=== PATIENT | female | born 1985 | race African-American/Black ===

== ENCOUNTER 2017-04-24 20:38 | Emergency (ER) | payer OTHER ==
--- NOTE | 2017-04-24 20:54 | PDOC ---
History of Present Illness - General History Source: Patient Exam Limitations: No Limitations - History of Present Illness Initial Comments: 04/24/17 21:12 Patient is a 32 year old female with no significant past medical history who presents to the ED with epigastric pain for 1 hour. Patient states that the abdominal pain is intermittent, localized to the epigastrium and radiating across the abdomen. She reports nausea and denies any vomiting or diarrhea. She denies any hematochezia. LMP last month. PSH: tubal ligation, cholecystectomy (2 years ago) SH: non smoker, denies alcohol or drug use. Allergies: NKA <Charlotte Fowler - Last Filed: 04/24/17 21:12> <Jj Arredondo - Last Filed: 04/25/17 01:25> - General Chief Complaint: Pain, Acute Stated Complaint: ABDOMINAL PAIN Time Seen by Provider: 04/24/17 20:53 Past History <Charlotte Fowler - Last Filed: 04/24/17 21:12> <Jj Arredondo - Last Filed: 04/25/17 01:25> - Past Medical History Allergies/Adverse Reactions: Allergies Allergy/AdvReac Type Severity Reaction Status Date / Time No Known Allergies Allergy Verified 04/24/17 20:54 Home Medications: Ambulatory Orders NK [No Known Home Medication] 04/24/17 Review of Systems - Review of Systems Able to Perform ROS?: Yes Comments:: 04/24/17 21:12 CONSTITUTIONAL: No fever, no chills, no fatigue EYES: No visual changes ENT: No ear pain, no sore throat CARDIOVASCULAR: No chest pain, no palpitations RESPIRATORY: No cough, no SOB GI:(+)abdominal pain, nausea. No vomiting, no constipation, no diarrhea GENITOURINARY: No dysuria, no frequency, no hematuria MUSCULOSKELETAL: No back pain, no joint pain, no myalgias SKIN: No rash NEURO: No headache <Charlotte Fowler - Last Filed: 04/24/17 21:12> *Physical Exam - Vital Signs Last Vital Signs Temp Pulse Resp BP Pulse Ox 97.9 F 68 16 130/56 97 04/24/17 20:54 04/24/17 20:54 04/24/17 20:54 04/24/17 20:54 04/24/17 20:54 - Physical Exam Comments: 04/24/17 21:12 CONSTITUTIONAL: Well-appearing; well-nourished; in no apparent distress HEAD: Normocephalic; atraumatic EYES: PERRL; EOM intact ENMT: External appears normal; normal oropharynx NECK: Supple; non-tender; no cervical lymphadenopathy CARD: Normal S1, S2; no murmurs, rubs, or gallops RESP: Normal chest excursion with respiration; breath sounds clear and equal bilaterally; no wheezes, rhonchi, or rales ABD: (+)RUQ tenderness and epigastric tenderness upon palpation. Soft, non- distended; no palpable organomegaly, no palpable hernias EXT: Normal ROM in all four extremities; non-tender to palpation; distal pulses intact SKIN: Warm, dry, no rash NEURO: No focal neurological deficiencies. <Charlotte Fowler - Last Filed: 04/24/17 21:12> ED Treatment Course - LABORATORY CBC & Chemistry Diagram: 04/24/17 21:19 04/24/17 21:19 <Jj Arredondo - Last Filed: 04/25/17 01:25> Medical Decision Making - Medical Decision Making 04/25/17 01:24 Patient is obese 32-year-old female who presents with severe epigastric pain. In the ER, patient is noted to be writhing in pain requiring parenteral narcotics for pain control. Serial abdominal exams reveal epigastric and right upper quadrant tenderness only. There is no guarding rebound. CBC/CMP/lipase within normal limit. Chest x-ray reveals no evidence of free air under diaphragm. Limited right upper quadrant ultrasound reveals no evidence of intraocular x-ray hepatic bili dilatated. Will obtain CT of abdomen and pelvis to rule out possible colitis. Will endorse Dr. rosales for final disposition. <Jj Arredondo - Last Filed: 04/25/17 01:25> *DC/Admit/Observation/Transfer - Attestations Scribe Attestion: 04/24/17 21:13 Documentation prepared by MAURA Contreras, acting as manager medical affairs for Jj Arredondo MD. <Charlotte Fowler - Last Filed: 04/24/17 21:12> - Attestations Physician Attestion: 04/25/17 01:24 The documentation was prepared by the scribe under my direct supervision. I have reviewed the documentation which correctly represents the findings, medical decision-making and critical action taken by me. <Jj Arredondo - Last Filed: 04/25/17 01:25> - Referrals Referrals: Lea Gao MD [Primary Care Provider] -
[2017-04-24] MEDS ORDERED: FAMOTIDINE 20 MG/50 ML IVPB 50 ML IVPB ONE ×2 (21:03→21:11)
[2017-04-24] MEDS ORDERED: ONDANSETRON 4 MG/2 ML VIAL IVPB ONE (21:03)
[2017-04-24] MEDS ORDERED: SODIUM CHLORIDE 1,000 ML IV STA (21:04)
[2017-04-24] MEDS ORDERED: morphine CARPU-JECT 4 MG/1 ML DISP.SYRIN IVPUSH ONE (21:04)
[2017-04-24 21:08] VITALS: BMI 40.8
[2017-04-24] MEDS ORDERED: morphine CARPU-JECT 4 MG/1 ML DISP.SYRIN ONE (21:11)
[2017-04-24] MEDS ORDERED: ONDANSETRON 4 MG/2 ML VIAL ONE (21:11)
[2017-04-24 21:29] LABS: EOSINOPHIL 1.9 % (0-4.5); MCHC 31.9 g/dl (32.0-36.0); MEAN CELL VOLUME 81.4 fl (80-96); MEAN PLT VOLUME 8.5 fl (7.5-11.1); NEUTROPHILS 64.8 % (42.8-82.8); PLATELET COUNT 250 K/MM3 (134-434); RDW 15.1 % (11.6-15.6); WHITE BLOOD COUNT 8.7 K/mm3 (4.0-10.0)
[2017-04-24 22:11] LABS: ALBUMIN 3.6 g/dl (3.4-5.0); BILIRUBIN,TOTAL 0.3 mg/dL (0.2-1.0); CALCIUM 9.3 mg/dL (8.5-10.1); COCKROFT - GAULT 149.838; CREATININE 1.1 mg/dL (0.55-1.02); TOT PROT 8.1 g/dl (6.4-8.2)
[2017-04-24 23:26] LABS: URINE APPEARANCE CLOUDY; URINE BILIRUBIN NEGATIVE (NEGATIVE); URINE BLOOD NEGATIVE (NEGATIVE); URINE COLOR LTYELLOW; URINE GLUCOSE (UA) NEGATIVE (NEGATIVE); URINE KETONE NEGATIVE (NEGATIVE); URINE NITRITE NEGATIVE (NEGATIVE); URINE PROTEIN NEGATIVE (NEGATIVE); URINE UROBILINOGEN NEGATIVE E.U./dl (0.2-1.0)
[2017-04-24 23:28] LABS: URINE LEUK ESTERASE 3+ (NEGATIVE)
[2017-04-24 23:29] LABS: URINE BACTERIA RARE /hpf (NONE SEEN); URINE MUCUS RARE; URINE RBC 15 /hpf (0-3); URINE WBC 6 /hpf (3-5); YEAST RARE
--- NOTE | 2017-04-25 03:38 | PDOC ---
*Physical Exam - Vital Signs Last Vital Signs Temp Pulse Resp BP Pulse Ox 97.9 F 67 18 146/66 98 04/24/17 20:54 04/25/17 00:33 04/25/17 00:33 04/25/17 00:33 04/25/17 00:33 <Zac Harrell - Last Filed: 04/25/17 03:37> - Vital Signs Last Vital Signs Temp Pulse Resp BP Pulse Ox 97.9 F 67 18 146/66 98 04/24/17 20:54 04/25/17 00:33 04/25/17 00:33 04/25/17 00:33 04/25/17 00:33 <UtsParisa - Last Filed: 04/25/17 03:39> ED Treatment Course - LABORATORY CBC & Chemistry Diagram: 04/24/17 21:19 04/24/17 21:19 - ADDITIONAL ORDERS Additional order review: Laboratory Results 04/24/17 04/24/17 21:19 21:19 Sodium 141 Potassium 3.8 Chloride 109 H Carbon Dioxide 20 L Anion Gap 12 BUN 10 Creatinine 1.1 H Creat Clearance w eGFR 57.56 Random Glucose 89 Calcium 9.3 Total Bilirubin 0.3 AST 17 ALT 15 Alkaline Phosphatase 64 Total Protein 8.1 Albumin 3.6 Lipase 313 Serum , Qual Negative Urine Color Ltyellow Urine Appearance Cloudy Urine pH 5.0 Urine Protein Negative Urine Glucose (UA) Negative Urine Ketones Negative Urine Blood Negative Urine Nitrite Negative Urine Bilirubin Negative Urine Urobilinogen Negative Ur Leukocyte Esterase 3+ H Urine RBC 15 Urine WBC 6 Ur Epithelial Cells Many Urine Bacteria Rare Urine Mucus Rare Urine Yeast Rare 04/24/17 21:19 RBC 4.73 MCV 81.4 MCHC 31.9 L RDW 15.1 MPV 8.5 Neutrophils % 64.8 Lymphocytes % 26.1 Monocytes % 6.2 Eosinophils % 1.9 Basophils % 1.0 - Medications Given in the ED: ED Medications Discontinued Medications Generic Name Dose Route Start Last Admin Trade Name Freq PRN Reason Stop Dose Admin Famotidine/Sodium Chloride 50 mls @ 100 mls/hr 04/24/17 21:03 04/24/17 21:27 Pepcid 20 Mg Premixed Ivpb - IVPB 04/24/17 21:32 100 mls/hr ONCE ONE Administration Sodium Chloride 1,000 mls @ 1,000 mls/hr 04/24/17 21:04 04/24/17 21:27 Normal Saline - IV 04/24/17 22:03 1,000 mls/hr ASDIR STA Administration Morphine Sulfate 4 mg 04/24/17 21:04 04/24/17 21:27 Morphine Injection - IVPUSH 04/24/17 21:05 4 mg ONCE ONE Administration Ondansetron HCl 8 mg 04/24/17 21:03 04/24/17 21:27 Zofran Injection IVPB 04/24/17 21:04 8 mg ONCE ONE Administration <MaxZac ponce - Last Filed: 04/25/17 03:37> - LABORATORY CBC & Chemistry Diagram: 04/24/17 21:19 04/24/17 21:19 - ADDITIONAL ORDERS Additional order review: Laboratory Results 04/24/17 04/24/17 21:19 21:19 Sodium 141 Potassium 3.8 Chloride 109 H Carbon Dioxide 20 L Anion Gap 12 BUN 10 Creatinine 1.1 H Creat Clearance w eGFR 57.56 Random Glucose 89 Calcium 9.3 Total Bilirubin 0.3 AST 17 ALT 15 Alkaline Phosphatase 64 Total Protein 8.1 Albumin 3.6 Lipase 313 Serum , Qual Negative Urine Color Ltyellow Urine Appearance Cloudy Urine pH 5.0 Urine Protein Negative Urine Glucose (UA) Negative Urine Ketones Negative Urine Blood Negative Urine Nitrite Negative Urine Bilirubin Negative Urine Urobilinogen Negative Ur Leukocyte Esterase 3+ H Urine RBC 15 Urine WBC 6 Ur Epithelial Cells Many Urine Bacteria Rare Urine Mucus Rare Urine Yeast Rare 04/24/17 21:19 RBC 4.73 MCV 81.4 MCHC 31.9 L RDW 15.1 MPV 8.5 Neutrophils % 64.8 Lymphocytes % 26.1 Monocytes % 6.2 Eosinophils % 1.9 Basophils % 1.0 - RADIOLOGY Radiograph Interpretation: 04/25/17 03:[address] impression reported by Dr. Ji Patterson: No inflammatory process identified in the abdomen or pelvis. No abdominal mass, adenopathy or collection seen. No explanation seen for this patient's abdominal pain. - Medications Given in the ED: ED Medications Discontinued Medications Generic Name Dose Route Start Last Admin Trade Name Freq PRN Reason Stop Dose Admin Famotidine/Sodium Chloride 50 mls @ 100 mls/hr 04/24/17 21:03 04/24/17 21:27 Pepcid 20 Mg Premixed Ivpb - IVPB 04/24/17 21:32 100 mls/hr ONCE ONE Administration Sodium Chloride 1,000 mls @ 1,000 mls/hr 04/24/17 21:04 04/24/17 21:27 Normal Saline - IV 04/24/17 22:03 1,000 mls/hr ASDIR STA Administration Morphine Sulfate 4 mg 04/24/17 21:04 04/24/17 21:27 Morphine Injection - IVPUSH 04/24/17 21:05 4 mg ONCE ONE Administration Ondansetron HCl 8 mg 04/24/17 21:03 04/24/17 21:27 Zofran Injection IVPB 04/24/17 21:04 8 mg ONCE ONE Administration <Parisa Jonhson - Last Filed: 04/25/17 03:39> *DC/Admit/Observation/Transfer - Discharge Dispostion Admit: No <Zac Harrell - Last Filed: 04/25/17 03:37> - Attestations Scribe Attestion: 04/25/17 03:38 Documentation prepared by Parisa Johnson, acting as medical services assistant for Zac Harrell DO. <Parisa Johnson - Last Filed: 04/25/17 03:39> Diagnosis at time of Disposition: Abdominal pain Qualifiers: Abdominal location: generalized Qualified Code(s): R10.84 - Generalized abdominal pain - Prescriptions Prescriptions: Pantoprazole Sodium [Protonix] 40 mg PO DAILY #30 tablet.dr - Referrals Referrals: Lea Gao MD [Primary Care Provider] - - Patient Instructions - Post Discharge Activity
[2017-04-25 03:55] VITALS: BP 138/89; PULSE 64; TEMP 98.1
== END 2017-04-25 03:56 | disposition home or self-care (01) ==
LOC: JER 20:38
PROC: 3E033GC Introduction of Other Therapeutic Substance into Peripheral Vein, Percutaneous Approach (ICD-10-PCS; principal; 2017-04-24)
PROC: 3E033NZ Introduction of Analgesics, Hypnotics, Sedatives into Peripheral Vein, Percutaneous Approach (ICD-10-PCS; 2017-04-24)
PROC: 3E033GC Introduction of Other Therapeutic Substance into Peripheral Vein, Percutaneous Approach (ICD-10-PCS; 2017-04-24)
DX: R10.84 Generalized abdominal pain (principal)
CPT/HCPCS: 36415; 71010-TC; 74177-TC; 76705-TC; 80053; 81003; 81015; 83690; 84703; 85025; 87086; 99282-25

== ENCOUNTER 2017-07-08 23:29 | Emergency (ER) | payer OTHER ==
[2017-07-08 23:43] VITALS: BP 107/75; PULSE 71; TEMP 99; BMI 37.6
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
[2017-07-09] MEDS ORDERED: traMADol HCL 50 MG TABLET PO ONE (00:45)
[2017-07-09] MEDS ORDERED: traMADol HCL 50 MG TABLET ONE (00:50)
== END 2017-07-09 02:29 | disposition home or self-care (01) ==
LOC: JER 23:29
DX: S00.531A Contusion of lip, initial encounter (principal); S69.92XA Unspecified injury of left wrist, hand and finger(s), initial encounter; M54.5 Low back pain; T74.11XA Adult physical abuse, confirmed, initial encounter; Y07.03 Male partner, perpetrator of maltreatment and neglect; Y93.9 Activity, unspecified; Y92.9 Unspecified place or not applicable
CPT/HCPCS: 73130-TC-LT; 99282-25